=== PATIENT | male | born 1970 | race Caucasian/White ===

== ENCOUNTER 2018-01-31 06:56 | Emergency (ER) | payer OTHER ==
[~2018-01-31] VITALS: Ht 165.1 cm; Wt 63.5 kg
[2018-01-31] MEDS ORDERED: TOPROL XL25 MG (07:09)
== END 2018-01-31 15:43 | disposition home or self-care (01) ==
LOC: ER 06:56
DX: K59.09 Other constipation (principal); R10.84 Generalized abdominal pain

== ENCOUNTER 2024-01-25 08:21 | Outpatient (CLI) | payer OTHER ==
[~2024-01-25 08:21] MED LIST: TOPROL XL25 MG; TOPROL XL50 M1 PO
== END 2024-01-25 08:40 | disposition home or self-care (01) ==
LOC: RAD 08:21
PROVIDERS: ATTEND Orthopaedic Surgery
DX: S42.221D 2-part displaced fracture of surgical neck of right humerus, subsequent encounter for fracture with routine healing (principal)

== ENCOUNTER 2024-03-02 12:00 | Outpatient (CLI) | payer OTHER | END 2024-03-02 12:10 | disposition home or self-care (01) | LOC: RAD 12:00 | PROVIDERS: ATTEND Orthopaedic Surgery | DX: S42.221D 2-part displaced fracture of surgical neck of right humerus, subsequent encounter for fracture with routine healing (principal) ==

== ENCOUNTER 2024-04-13 12:13 | Outpatient (CLI) | payer OTHER | END 2024-04-13 12:20 | disposition home or self-care (01) | LOC: RAD 12:13 | PROVIDERS: ATTEND Orthopaedic Surgery | DX: S42.221D 2-part displaced fracture of surgical neck of right humerus, subsequent encounter for fracture with routine healing (principal) ==

== ENCOUNTER 2024-05-01 09:43 | Outpatient (CLI) | payer OTHER ==
[2024-05-01 13:40] LABS: HEMATOCRIT 46.6 % (39.0-48.0); HEMOGLOBIN 15.8 g/dL (13-16.00); MEAN CELL VOLUME 88.4 fL (80.0-100.00); MEAN CORPUSCULAR HEMOGLOBIN 29.9 pg (27.00-32.0); MEAN CORPUSCULAR HGB CONC 33.9 g/dl (32.0-36.0); PLATELET COUNT 268 K/uL (150-450); RED BLOOD COUNT 5.27 M/uL (4.00-6.00); RED CELL DISTRIBUTION WIDTH 14.4 % (11.5-14.5)
[2024-05-01 13:40] LABS: PH,URINE 5.5 (5.0-8.0); URINE APPEARANCE Clear; URINE BILIRRUBIN Negative (NEGATIVE); URINE BLOOD Negative; URINE COLOR Yellow; URINE GLUCOSE Negative (NEGATIVE); URINE KETONE Negative (NEGATIVE); URINE LEUKOCYTE Negative; URINE NITRATE Negative; URINE PROTEIN Negative (NEGATIVE); URINE UROBILINOGEN 0.2 E.U./dl
[2024-05-01 13:51] LABS: COL EPI 82 SECONDS (82-175)
[2024-05-01 13:58] LABS: URINE CAST 0.15 uL (0.0-1.40)
[2024-05-01 14:01] LABS: INR 1.05; PARTIAL THROMBOPLASTIN TIME 25.4 SECONDS (22.0-34.0); PROTHROMBIN TIME 11.4 SECONDS (9.0-11.5)
[2024-05-01 14:40] LABS: ALBUMIN 4.3 gm/dL (3.4-5.0); BILIRUBIN TOTAL 0.71 mg/dL (0.3-1.2); CALCIUM 9.3 mg/dL (8.5-10.1); CREATININE SERUM 0.86 mg/dL (0.70-1.30); GFR 93.02; GLOBULINA 3.5 G/DL (2.4-3.5); POTASSIUM 4.37 mEq/L (3.5-5.1); TOTAL PROTEIN 7.8 gm/dL (6.4-8.2)
== END 2024-05-01 09:56 | disposition home or self-care (01) ==
LOC: RAD 09:43
PROVIDERS: ATTEND Orthopaedic Surgery
DX: I10 Essential (primary) hypertension (principal); Z76.89 Persons encountering health services in other specified circumstances; D64.9 Anemia, unspecified; E88.89 Other specified metabolic disorders; D68.8 Other specified coagulation defects; N39.0 Urinary tract infection, site not specified; Z22.322 Carrier or suspected carrier of Methicillin resistant Staphylococcus aureus; M24.511 Contracture, right shoulder; S42.221D 2-part displaced fracture of surgical neck of right humerus, subsequent encounter for fracture with routine healing

== ENCOUNTER 2024-05-10 10:58 | Outpatient (CLI) | payer OTHER ==
[2024-05-10 11:37] VITALS: BP 150/97
== END 2024-05-10 11:05 | disposition home or self-care (01) ==
LOC: LAB 10:58 → EKG 10:58
PROVIDERS: ATTEND Orthopaedic Surgery
DX: I10 Essential (primary) hypertension (principal)

== ENCOUNTER 2024-05-15 06:08 | Outpatient (CLI) | payer OTHER | END 2024-05-15 06:25 | disposition home or self-care (01) | LOC: LAB 06:08 | PROVIDERS: ATTEND Orthopaedic Surgery | DX: N39.0 Urinary tract infection, site not specified (principal); Z22.322 Carrier or suspected carrier of Methicillin resistant Staphylococcus aureus ==

== ENCOUNTER 2024-05-22 08:21 | Day surgery (SDC) | payer OTHER ==
[2024-05-22] MEDS ORDERED: BUPIVACAINE HCL 30 ML VIAL IV ONE (15:00)
[2024-05-22] MEDS ORDERED: LIDOCAINE HCL 1%/EPINEPHRINE 20ML VIAL IJ ONE (15:00)
[2024-05-22] MEDS ORDERED: EPINEPHRINE HCL/PF 1 MG/ML AMPUL IV ONE (15:00)
[2024-05-22] MEDS ORDERED: METHYLPREDNISOLONE ACETATE 80 MG/ML VIAL IM ONE (15:00)
[2024-05-22] MEDS ORDERED: CIPROFLOXACIN IN 5 % DEXTROSE 400 MG/200 ML PIGGYBAG IV ONE (15:00)
[2024-05-22] MEDS ORDERED: hydrALAZINE HCL 20 MG VIAL IV ONE (17:30)
== END 2024-05-22 18:00 | disposition home or self-care (01) ==
LOC: CIR.AMB 08:21
PROVIDERS: ATTEND Orthopaedic Surgery
DX: M24.511 Contracture, right shoulder (principal); M75.51 Bursitis of right shoulder; M19.011 Primary osteoarthritis, right shoulder; M65.811 Other synovitis and tenosynovitis, right shoulder

== ENCOUNTER 2025-07-03 08:35 | Outpatient (CLI) | payer OTHER | END 2025-07-03 08:39 | disposition home or self-care (01) | LOC: LAB 08:35 | PROVIDERS: ATTEND Orthopaedic Surgery | DX: E55.9 Vitamin D deficiency, unspecified (principal); M85.9 Disorder of bone density and structure, unspecified; E56.1 Deficiency of vitamin K ==